=== PATIENT | female | born 1945 | race Hispanic/Latino ===

== ENCOUNTER 2020-01-15 07:54 | Day surgery (SDC) | payer OTHER ==
--- NOTE | 2020-01-11 15:23 | RAD REPORT ---
EXAM DESCRIPTION: Tamiko Ojeda (2 Views)01/11/2020 3:05 pm CLINICAL HISTORY: Abdominal pain/preop for gallbladder surgery COMPARISON: 2013 FINDINGS: The lungs appear clear of acute infiltrate. The heart is normal size IMPRESSION: No acute abnormalities displayed
[2020-01-11 15:31] LABS: Absolute Lymphocytes (CBC) 2.8 K/uL (0.7-4.9); Basophils % 0.6 % (0-1.3); Hematocrit 41.2 % (36.0-45.0); Lymphocytes % 33.9 % (15.3-44.8); MPV 10.1 fL (7.6-11.3); RBC Red Blood Cell Count 4.55 M/uL (3.86-4.86)
[2020-01-11 15:49] LABS: ALT/SGPT 33 U/L (12-78); AST/SGOT 26 U/L (15-37); Albumin 3.9 g/dL (3.4-5.0); Alkaline Phosphatase 69 U/L (45-117); Amylase 58 U/L (25-115); BUN Blood Urea Nitrogen 18 mg/dL (7-18); Bicarbonate 27 mmol/L (21-32); Bilirubin Direct < 0.1 mg/dL (0-0.2); Bilirubin Total 0.3 mg/dL (0.2-1.0); Glucose Level 146 mg/dL (74-106); Lipase 234 U/L (73-393); Potassium 4.4 mmol/L (3.5-5.1); Protein, Total 7.5 g/dL (6.4-8.2); Sodium Level 140 mmol/L (136-145)
[2020-01-15] MEDS ORDERED: NA CHLORIDE 0.9% 1,000 ML ONE (08:47)
--- OUTSIDE RECORDS SUMMARY | 2020-01-15 08:58 | XMS REPORT | Clinical Summary ---
:1945 Author Organization [facility] Address [address] [place] [address] Care Team Providers Name Role Phone Angelica Green MD Primary Care Provider Allergies No Known Active Allergies Medications Medication Sig Dispensed Refills Start Date End Date Status pantoprazole Take 40 mg by 0 Act jovani (PROTONIX) 40 MG mouth daily. EC tablet lisinopril Take 10 mg by 0 Activ e (PRINIVIL,ZESTRIL) mouth daily. 10 MG tablet Hold dos clopidogrel Take 75 mg by 0 Acti ve (PLAVIX) 75 mg mouth daily. tablet citalopram Take 20 mg by 0 Activ e (CeleXA) 20 MG mouth daily. tablet aspirin (ECOTRIN) Take 81 mg by 0 Active 81 MG enteric mouth daily. coated tablet metoprolol Take 50 mg by 0 Activ e tartrate mouth 2 (two) (LOPRESSOR) 50 MG times a day. tablet glyburide-metformi Take 2 tablets 0 Active n (GLUCOVANCE) by mouth 2 (two) 5-500 mg per times a day. tablet solifenacin Take 5 mg by 0 Activ e (VESICARE) 10 MG mouth daily. tablet calcium Take 1 tablet by 0 Act jovani citrate-vitamin D3 mouth daily. (CITRACAL+D) 315-200 mg-unit per tablet simvastatin Take 40 mg by 0 Acti ve (ZOCOR) 20 MG mouth every tablet morning. exenatide Inject under the 0 Act jovani microspheres 2 mg skin. suspension,extende d rel recon NON FORMULARY EYE VITAMIN 0 Acti ve cycloSPORINE Administer 1 0 Acti ve (RESTASIS) 0.05 % drop to both ophthalmic eyes 2 (two) emulsion times a day. TURMERIC (CURCUMIN 0 A ctive MISC) EXENATIDE Bydureon 0 Active MICROSPHERES (BYDUREON SUBQ) Jardiance 25 mg 0 10/12/2019 Act jovani tablet gabapentin Take 300 mg by 5 06/24/2015 Dis continued (NEURONTIN) 300 MG mouth 3 (three) 0 capsule times a day. glyburide-metformi Take 1 tablet(s) 0 12/05 Discontinued n (GLUCOVANCE) twice a day by 0 5-500 mg per oral route. tablet Active Problems Problem Noted Date Pre-op evaluation 12/26/2019 SOB (shortness of breath) 12/26/2019 Pure hypercholesterolemia 12/26/2019 Essential hypertension 12/26/2019 Spinal stenosis of lumbar region 10/04/2015 Encounters Date Type Specialty Care Team Description 01/02/2020 Travel 12/26/2019 Office Visit Cardiology Cedric Farfan MD Pre-op e valuation (Primary Dx); SOB (shortness of breath); Pure hyperchole sterolemia; Essential hyper tension 12/26/2019 Travel 12/22/2019 Travel 12/22/2019 Telephone Cardiology Juvenal Paul MA Cardiac [facility] nce after 01/14/2019 Surgical History Surgery Date Site/Laterality Comments OTHER SURGICAL HISTORY Neck Fuss ion HYSTERECTOMY KNEE SURGERY left ESOPHAGEAL DILATION NECK SURGERY fusion IA 10/04/2015 Spine Lumbar/N/A Procedure: DECO MPRESSION, LAMINEC/FACETECT/FORAMIN,LUMBA L 4-L5 ; Surgeon: Shelton Herr MD; Loc ation: [facility] OPC 19 OR; Serv ice: Orthopedics SPINE SURGERY Cervical Fusion Medical History Medical History Date Comments Hypertension Hyperlipidemia Diabetes mellitus (HCC) GERD (gastroesophageal reflux disease) TIA (transient ischemic attack) Angina pectoris (HCC) Claustrophobia Does not exercise Arthritis lower back CAD (coronary artery disease) At risk for difficult intubation Seconda ry to history of neck fusion Family History Medical History Relation Name Comments Diabetes Mother Heart disease Mother Stroke Mother Relation Name Status Comments Father Mother Social History Tobacco Use Types Packs/Day Years Used Date Former Smoker Cigarettes 0.5 Comments: Quit 1995 Alcohol Use Drinks/Week oz/Week Comments No Sex Assigned at Date Recorded Not on file COVID-19 Exposure Response Date Recorded In the last month, have you been in contact with No / Unsure 01/02/2020 7:34 AM CDT someone who was confirmed or suspected to have Coronavirus / COVID-19? Last Filed Vital Signs Vital Sign Reading Time Taken Comments Blood Pressure 147/65 12/26/2019 11:13 AM CDT Pulse 55 12/26/2019 11:13 AM CDT Temperature - - Respiratory Rate - - Oxygen Saturation - - Inhaled Oxygen Concentration - - Weight 62.1 kg (137 lb) 12/26/2019 11:13 AM CDT Height 162.6 cm (5' 4") 12/26/2019 11:13 AM CDT Body Mass Index 23.52 12/26/2019 11:13 AM CDT Plan of Treatment Health Maintenance Due Date Last Done Comments DIABETIC RETINAL EYE EXAM 1945 DIABETIC FOOT EXAM 10/16/1953 URINE MICROALBUMIN 10/16/1953 COLONOSCOPY SCREENING 10/16/1993 SHINGLES VACCINES (#1) 10/16/1993 65+ PNEUMOCOCCAL VACCINE (1 of 1 - PPSV23) 10/16/2008 INFLUENZA VACCINE 11/04/2019 Procedures Procedure Name Priority Date/Time Associated Comments Diagnosis NM MYOCARDIAL Routine 01/03/2020 4:19 PM Pre-op evalu ation Results for this PERFUSION REST CDT SOB (shortness of procedur e are in STRESS 1 DAY breath) the results section. CV STRESS TEST Routine 01/02/2020 9:48 AM Pre-op evalu ation Results for this CDT SOB (shortness of procedure are in breath) the results section. ECG 12-LEAD Routine 12/25/2019 11:21 PM Pre-op evaluation Res ults for this CDT procedure are i n the results section. after 01/14/2019 Results Nm myocardial perfusion (01/03/2020 4:19 PM CDT) Specimen Narrative Performed At [facility] Nuclear Cardi ology and Cardiac CT [address] [place] [address] Myocardial Pe rfusion Imaging Report Stress ECG tracings are availab le in MUSE, EPIC and CV Web All ECG interpretations a re included in this report Pat.Name: ADELA CHIN Pat.ID: [id number] .Date: 01/02/2020 Refer.MD: CEDRIC FARFAN MD Exam Time: 8:40:00 AM Study Type:Myocardial Perfusion Imaging Height: 64in Weight: 137lb BSA: 1.67 m2 Ag e: 1945,74Y Sex: FEMALE Nuclear Tech:Mariaelena Powell Nuclear Event ID:[id number] Order ID: [id number] Reason for Study:Pre-op clearance, Short ness of breath Procedures: Single Day Rest / Stress Race: Clinical Symptoms:Regadenoson 0.4 mg adm inistered intravenously over 10 seconds SUMMARY: BASELINE ECG Normal Sinus Rhythm, Nons pecific ST abnormality STRESS TEST RESULTS Maximal Predicted HR 144 beats/minute 85% Maximal Predicted HR 122 beats/minute Stress Test Duration 1 minutes 00 seco nds Resting Heart Rate 64 beats/minute Max imal Heart Rate 96 beats/minute Resting Blood Pressure 110/70 mmHg Max imal Blood Pressure 132/80 mmHg % Maximal Heart Rate Achieved 67% Symptoms During Test Flushing, Dyspnea , Dizziness Reason for Stopping Test As per regade noson protocol Maximal ST-segment shift None Stress-Induced Arrhythmias None Ischemic electrocardiographic changes (S T-segment depression) did not occur at peak regadenoson stress. STRESS TEST INTERPRETATION Normal anders l regadenoson stress test. SCINTIGRAPHIC RESULTS Perfusion Defect Size (% LV) 0 % Total 0 % Ischemia 0 % Scar Left Ventricular Perfusion Results There is normal tracer distribution duri ng stress and rest. Gated SPECT Results The post-stress left ventricular ejectio n fraction is 63 % with normal regional wall motion and left ventricula r thickening. Left ventricular end-diastolic volume is 51 m l; end-systolic volume is 19 ml. The left ventricle is of normal size at stress and at rest. The right ventricle is of normal size with n ormal wall motion. Conclusion Normal regadenoson Tc-99m sestamibi myoc ardial perfusion study. The left ventricular ejection fraction is no rmal. Comments Patients with a normal stress myocardial perfusion study have a low (< 1%) annual risk of cardiac or nonf atal myocardial infarction. Study Quality/Artifacts The study quality is good. Comparison to Previous Study The previous study dated 08/16/2015 was a lso normal, with a left ventricular ejection fraction of 73%. FINDINGS: Signed 01/03/2020 06:18 PM Boni Blackmon MD Procedure Note Interface, Radiology Results In - 2019 6:24 PM CDT Nuclear Cardiology and Cardiac CT [address] [facility] [address] [place] [address] Myocardial Perfusion I maging Report Stress ECG tracings are available in [employer], [employer] and [employer] All ECG interpretations are in cluded in this report Pat.Name: ADELA CHIN Pat.I D: [id number] St.Date: 01/02/2020 Refer .MD: CEDRIC FARFAN MD Exam Time: 8:40:00 AM Study Type:Myocardial Perfusion Imaging Height: 64in Weigh t: 137lb BSA: 1.67 m2 Age: 7 1945,74Y Sex: FEMALE Nucle cesar Tech:Mariaelena Powell Nuclear Event ID:[id number] Order ID: [id number] Reason for Study:Pre-op clearance, Short ness of breath Procedures: Single Day Rest / Stress Race: Clinical Symptoms:Regadenoson 0.4 mg adm inistered intravenously over 10 seconds SUMMARY: BASELINE ECG Normal Sinus Rhythm, Nonsp ecific ST abnormality STRESS TEST RESULTS Maximal Predicted HR 144 beats/minute 8 5% Maximal Predicted HR 122 beats/minute Stress Test Duration 1 minutes 00 secon ds Resting Heart Rate 64 beats/minute Maxi mal Heart Rate 96 beats/minute Resting Blood Pressure 110/70 mmHg Maxi mal Blood Pressure 132/80 mmHg % Maximal Heart Rate Achieved 67% Symptoms During Test Flushing, Dyspnea, Dizziness Reason for Stopping Test As per regaden oson protocol Maximal ST-segment shift None Stress-Induced Arrhythmias None Ischemic electrocardiographic changes (S T-segment depression) did not occur at peak regadenoson stress. STRESS TEST INTERPRETATION Normal anders l regadenoson stress test. SCINTIGRAPHIC RESULTS Perfusion Defect Size (% LV) 0 % Total 0 % Ischemia 0 % Scar Left Ventricular Perfusion Results There is normal tracer distribution duri ng stress and rest. Gated SPECT Results The post-stress left ventricular ejectio n fraction is 63 % with normal regional wall motion and left ventricula r thickening. Left ventricular end-diastolic volume is 51 m l; end-systolic volume is 19 ml. The left ventricle is of normal size at stress and at rest. The right ventricle is of normal size with n ormal wall motion. Conclusion Normal regadenoson Tc-99m sestamibi myoc ardial perfusion study. The left ventricular ejection fraction is no rmal. Comments Patients with a normal stress myocardial perfusion study have a low (< 1%) annual risk of cardiac or nonf atal myocardial infarction. Study Quality/Artifacts The study quality is good. Comparison to Previous Study The previous study dated 08/16/2015 was a lso normal, with a left ventricular ejection fraction of 73%. FINDINGS: Signed 01/03/2020 06:18 PM Boni Blackmon MD Performing Organization Address City/State/ZIP Code Phon e Number [facility] [id number] [place] [address] Cv stress test (01/02/2020 9:48 AM CDT) Resting HR 62 [facility] Resting BP 110&70 [facility] Peak MET Achieved 1.0 [facility] Protocol Name Arnoldo [facility] MUSE Time in Exercise 00:01:00 [facility]USE Phase Max Systolic BP 136 [facility] Max Diastolic BP 84 [facility] Max Heart Rate 96 [facility] Max Predicted Heart 144 [facility] Rate Target HR Formula (220 - Age)*85% H MUSE Test Indication H MUSE Arrhy During Ex [facility] ECG Interp Before EX [facility] ECG Interp During Ex [facility] Ex Summary Comment [facility] MUSE Chest Pain Statement none [facility] MUSE Overall HR Response H MUSE to Exercise Overall BP Response H MUSE To Exercise Reason for As per [facility] MUSE Termination protocol Stress Test Waveform interpreted in [facility] MUSE Impression report associated with image study. No interpretation is provided as part of this Stress ECG report.--Electronically Signed By Neymar HORTON, Boni Marie ([id number]), assistant production editor Ruth Kenyon ([id number]) on 01/10/2020 3:15:07 PM Specimen Narrative Performed At This result has an attachment that is no t available. Performing Organization Address City/[facility] Phon e Number H MUSE [address] [place] [address] ECG 12 lead (12/25/2019 11:21 PM CDT) Pathologist Sig nature Ventricular rate 56 [facility] Atrial rate 56 [facility] IA interval 176 H MUSE QRSD interval 84 [facility] QT interval 448 [facility] QTC interval 432 [facility] P axis 1 58 [facility] QRS axis 1 62 [facility] T wave axis 64 [facility] EKG impression Sinus [facility] MUSE bradycardia-Electronica lly Signed By Santy Valdez MD ([id number]) on 12/27/2019 2:09:05 PM Specimen Narrative Performed At This result has an attachment that is no t available. Performing Organization Address [facility] Phon e Number H MUSE [address] [place] [address] after 01/14/2019 Insurance Payer Benefit Plan / Subscriber ID Effective Dates Phone Addre ss Type Group MEDICARE MEDICARE PART A [id number] 2008-Present [facility] [place] Medicare AND B FOR LIFE [id number] 2015-Present [facility] SUPPLEMENT Advance Directives For more information, please contact: [phone] Type Date Recorded Patient Laboratory Chemical Assistant Explanati on Advance Directives, Living Will and Medical Power of Software Sales Manager
--- OUTSIDE RECORDS SUMMARY | 2020-01-15 08:59 | XMS REPORT | Continuity of Care Document ---
:1945 Author Organization [facility] t Address Critical access hospital [address] [place] [address] Care Team Providers Name Role Phone Peter HORTON Primary Care Physician NAHEED Attending Clinician Unavailable Beverly SANCHEZ Attending Clinician Unavailable Payers Payer Name Policy Type Policy Effective Date Expiration Date Sour ce Number MEDICAREMEDICARE PART [id number] 2008 Ken[place] Rivera AND 00:00:00 [facility] PqtaxcziDS330/04/2008[place] FOR [id number] 2015 [place] LIFE MCR 00:00:00 [facility] [id number]/ 04/2015-PresentMilitar y Problems Condition Condition Condition Status Onset Resolution Last Treating Co mments Source Name Details Category Date Date Treatment Clinician Date Pre-op Pre-op Disease Active [facility] evaluation evaluation 12-25 Me thodi 00:00: st 00 SOB SOB Disease Active [facility] (shortness (shortness 12-25 Me [facility] of breath) of breath) 00:00: st 00 Pure Pure Disease Active [facility] hyperchole hyperchole - Me thodi sterolemia sterolemia 00:00: st 00 Essential Essential Disease Active Jonathan ston hypertensi hypertensi - Me thodi on on 00:00: st 00 Spinal Spinal Disease Active [facility] stenosis stenosis 7-01 Method i of lumbar of lumbar 00:00: st region region 00 Allergies, Adverse Reactions, Alerts This patient has no known allergies or adverse reactions. Family History Family Member Diagnosis Comments Start Date Stop Date Source Natural mother Diabetes [facility] [facility] Natural mother Heart disease [facility] [facility] Natural mother Stroke [facility] thodist Social History Social Habit Start Date Stop Date Quantity Comments Source History of tobacco Cigarette Smoker [facility] use [facility] Sex Assigned At [facility] Exposure to Not sure [facility] SARS-CoV-2 (event) Method ist Cigarettes smoked 2015-11-21 2015-11-21 [facility] current (pack per 00:00:00 00:00:[address] ) - Reported Alcohol intake 2015-11-21 2015-11-21 Current [facility] 00:00:00 00:00:00 non-drinker of Orthodox alcohol (finding) Tobacco Comment 2015-10-03 2015-10-03 Quit 1995 [facility] 00:00:00 00:00:00 [facility] Smoking Status Start Date Stop Date Source Former smoker 2015-11-21 00:00:00 2015-11-21 00:00:00 [place] [facility] Medications Ordered Filled Start Stop Current Ordering Indication Dosage Frequency Signature Comments Components Source Medication Medication Date Date Medication? Clinician (SIG) Name Name glyburide-m 2020-0 2020- No Take 1 Jonathan ston etformin 12-25 tablet(s) Metho di (GLUCOVANCE 11:18: 00:[address] ) 5-500 mg 28 :00 day by per tablet oral route. pantoprazol 2020-0 Yes 40mg QD Take 40 mg [place] e 12-25 by mouth Methodi (PROTONIX) 11:17: daily. st 40 MG EC 45 tablet lisinopril 2020-0 Yes 10mg QD Take 10 mg [place] (PRINIVIL,Z 12-25 by mouth Meth donte ESTRIL) 10 11:17: daily. st MG tablet 45 Hold dos clopidogrel 2020-0 Yes 75mg QD Take 75 mg [place] (PLAVIX) 75 12-25 by mouth Meth donte mg tablet 11:17: daily. st 45 citalopram 2020-0 Yes 20mg QD Take 20 mg [place] (CeleXA) 20 12-25 by mouth Meth donte MG tablet 11:17: daily. st 45 aspirin 2020-0 Yes 81mg QD Take 81 mg [place] (ECOTRIN) 12-25 by mouth Method i 81 MG 11:17: daily. st enteric 45 coated tablet metoprolol 2020-0 Yes 50mg Q.5D Take 50 mg [place] tartrate 12-25 by mouth 2 Metho di (LOPRESSOR) 11:17: (two) st 50 MG 45 times a tablet day. glyburide-m 2020-0 Yes 2{tbl} Q.5D Take 2 [place] etformin 12-25 tablets by Metho di (GLUCOVANCE 11:17: mouth 2 st ) 5-500 mg 45 (two) per tablet times a day. solifenacin 2020-0 Yes 5mg QD Take 5 mg [place] (VESICARE) 12-25 by mouth Metho di 10 MG 11:17: daily. st tablet 45 calcium 2020-0 Yes 1{tbl} QD Take 1 [place] citrate-vit 12-25 tablet by Met hodi jeter D3 11:17: mouth st (CITRACAL+D 45 daily. ) 315-200 mg-unit per tablet simvastatin 2019-0 Yes 40mg QD Take 40 mg [place] (ZOCOR) 20 12-25 by mouth Metho di MG tablet 11:17: every st 45 morning. NON 2020-0 Yes EYE [place] FORMULARY 12-25 VITAMIN Methodi 11:17: st 45 cycloSPORIN 2019-0 Yes 1[drp] Q.5D Administer [place] E 12-25 1 drop to Methodi (RESTASIS) 11:17: both eyes st 0.05 % 45 2 (two) ophthalmic times a emulsion day. EXENATIDE 2019-0 Yes Bydureon [place] MICROSPHERE 12-25 Methodi S (BYDUREON 11:17: st SUBQ) 45 Jardiance 2019-0 Yes [place] 25 mg 10-11 Methodi tablet 00:00: st 00 exenatide Yes Inject Gare[place] n microsphere -18 under the Met hodi s 2 mg 12:39: skin. st suspension, 14 extended rel recon TURMERIC 2015- Yes Naeem (CURCUMIN 8-18 Methodi MISC) 12:39: st 14 gabapentin 2015-0 2020- No 300mg [id number] Take 300 [place] (NEURONTIN) 06-23 [id number] mg by Methodi 300 MG 00:00: 00:[address] capsule 00 :00 (three) times a day. Vital Signs Vital Name Observation Time Observation Value Comments Source Systolic blood 2019-12-26 11:13:00 147 mm[Hg] Garett delgado [facility] pressure Diastolic blood 2019-12-26 11:13:00 65 mm[Hg] [place] [facility] pressure Heart rate 2019-12-26 11:13:00 55 /min [place] Body height 2019-12-26 11:13:00 162.6 cm [place] Body weight 2019-12-26 11:13:00 62.143 kg [place] BMI 2019-12-26 11:13:00 23.52 kg/m2 [facility] [place] Procedures Procedure Date / Time Performed Performing Clinician Sourc e NM MYOCARDIAL PERFUSION 2020-01-03 16:19:38 Cedric Farfan Orthodox REST STRESS 1 DAY CV STRESS TEST 2020-01-02 09:48:02 Cedric Farfan Meth odist ECG 12-LEAD 2019-12-25 23:21:40 Cedric Farfan Meth odist Plan of Care Planned Activity Planned Date Details Comments Source Future Scheduled 2019-11-04 INFLUENZA VACCINE [place] [facility] Test 00:00:00 [code = INFLUENZA VACCINE] Future Scheduled 2008-10-16 65+ PNEUMOCOCCAL [facility] Test 00:00:00 VACCINE (1 of 1 - PPSV23) [code = 65+ PNEUMOCOCCAL VACCINE (1 of 1 - PPSV23)] Future Scheduled 1993-10-16 COLONOSCOPY SCREENING [place] [facility] Test 00:00:00 [code = COLONOSCOPY SCREENING] Future Scheduled 1993-10-16 SHINGLES VACCINES (#1) [place] [facility] Test 00:00:00 [code = SHINGLES VACCINES (#1)] Future Scheduled 1953-10-16 DIABETIC FOOT EXAM [place] [facility] Test 00:00:00 [code = DIABETIC FOOT EXAM] Future Scheduled 1953-10-16 URINE MICROALBUMIN [place] [facility] Test 00:00:00 [code = URINE MICROALBUMIN] Future Scheduled 1945 DIABETIC RETINAL EYE Jonathan ston [facility] Test 00:00:00 EXAM [code = DIABETIC RETINAL EYE EXAM] Encounters Start End Encounter Admission Attending Care Care Encounter Source Date/Time Date/Time Type Type Clinicians Facility Department ID 2020-01-02 2020-01-02 [id number] [place] 00:00:00 00:00:00 CEDRIC [address] 2019-12-26 2019-12-26 Outpatient [facility] [id number] [place] 00:00:00 00:00:00 CEDRIC [address] Results Test Description Test Time Test Comments Results Result Comments Source ECG 12 lead 2019-12-27 14:09:09 Test Item Value Reference Range Interpretation Comme nts Ventricular rate (test code = 253) 56 Atrial rate (test code = 255) 56 AL interval (test code = 266) 176 QRSD interval (test code = 260) 84 QT interval (test code = 264) 448 QTC interval (test code = 265) 432 P axis 1 (test code = 267) 58 QRS axis 1 (test code = 268) 62 T wave axis (test code = 270) 64 EKG impression (test code = 273) Sinus bradycardia-Electronically S igned By Santy Valdez MD ([id number]) on 12/27/2019 2:09:05 PM [place] [place]
[2020-01-15] MEDS ORDERED: CEFOXITIN/SWI 1gm 1 GM/10 ML SYR ONE (09:03)
[2020-01-15] MEDS ORDERED: FENTANYL CITR 100 MCG/2 ML ONE (09:24)
[2020-01-15] MEDS ORDERED: ROCURONIUM 50 MG/5 ML VIAL IV ONE (09:24)
[2020-01-15] MEDS ORDERED: MIDAZOLAM HCL 2 MG/2 ML INJ ONE (09:24)
[2020-01-15] MEDS ORDERED: propofoL 200 MG/20 ML VIAL IV ONE (09:24)
[2020-01-15] MEDS ORDERED: LIDOCAINE 2% MPF 5 ML VIAL ONE (09:24)
[2020-01-15] MEDS ORDERED: dexAMETHasone 4 MG/ML VIAL ONE (09:25)
[2020-01-15] MEDS ORDERED: ONDANSETRON 4 MG/2 ML VIAL ONE (09:25)
[2020-01-15] MEDS ORDERED: GLYCOPYRROLATE 0.2 MG/ML SYR ONE ×2 (10:23→10:46)
[2020-01-15] MEDS ORDERED: EPHEDRINE SULF 50 MG/ML VIAL ONE (10:29)
--- NOTE | 2020-01-15 10:39 | P.BOP ---
Preoperative diagnosis: acute cholecystitis, symptomatic cholelithiasis Postoperative diagnosis: same Primary procedure: Laparoscopic cholecystectomy Estimated blood loss: <10cc Specimen: gb Findings: as above Anesthesia: General Complications: None Transferred to: Recovery Room Condition: Good
[2020-01-15] MEDS ORDERED: KETOROLAC 30 MG/ML INJ ONE (10:41)
[2020-01-15] MEDS ORDERED: NEOSTIGMINE 1 MG/ML -5 ML ONE (10:48)
--- NOTE | 2020-01-15 11:09 | OP ---
Date of Procedure: 01/15/2020 Surgeon: Kamran Fuentes MD Preoperative Diagnoses: Acute cholecystitis, symptomatic cholelithiasis. Postoperative Diagnoses: Acute cholecystitis, symptomatic cholelithiasis. Procedure Performed: Laparoscopic cholecystectomy. Anesthesia: General plus local. Specimen: Gallbladder. Finding: Acute cholecystitis and symptomatic cholelithiasis. Indications: This is the case of a 74-year-old patient, comes to us with above diagnosis. Fully exp lained the benefits, alternatives, and risks of laparoscopic possible open cholecystectomy, which inc lude, but not limited to infection, bleeding, damage to adjacent structures, anesthesia complication, choledocholithiasis, bile leak, pancreatitis, [place], and even . She also understands this may not relieve any symptoms. She might need more than one surgical intervention. She understood and andrew d the consent. Procedure In Detail: The patient was brought to the operating room and placed in supine position. A nesthesia was done without complication. Abdominal area was prepped and draped in sterile fashion. Marcaine 0.5% was injected for local anesthetic followed by sharp incision of the skin in the infraum bilical region. Incision was carried down to fascia, which was opened under direct vision. Peritone um was encountered, opened under direct vision. Vicryl #1 placed inside the fascia. Makenna trocar w as carefully introduced. Pneumoperitoneum was obtained. I placed 3 more trocars, 5 mm each one of t hem in the right upper quadrant under direct visualization. I put a grasper in the fundus of the gal lbladder. After obtaining pneumoperitoneum, another grasper in the infundibulum retracting the gallb ladder in the inferolateral fashion exposing the triangle of Calot obtaining critical view. The cyst ic duct and cystic artery were clearly isolated, freed circumferentially and a connection between tho se and the gallbladder were clearly identified. I proceeded to ligate those by using at least 3 clip s proximal, 1 clip distal, ligation in middle. Same was done with the cystic artery. No bile leak. No bleeding. The gallbladder was removed from liver using Bovie cauterizer and removed from abdomin al cavity using EndoCatch through the umbilical incision. The area was inspected once again. No víctor e leak. No bleeding. At that moment, I proceeded to remove the trocars under direct vision, deflate d pneumoperitoneum, closed the fascia with #1 Vicryl, irrigated subcutaneous tissue and closed with 3 -0 chromic and skin in a subcuticular fashion with 3-0 chromic, and Steri-Strips on top. Sponge coun t and instrument counts correct. The patient tolerated the procedure well. The patient was sent to Recovery in stable condition. ESDRAS/SOLOMON Voice ID: [id number] Report ID: [id number]
--- NOTE | 2020-01-15 11:15 | DS ---
Diagnosis: Acute cholecystitis, symptomatic cholelithiasis. Procedure: Laparoscopic cholecystectomy. Disposition: Home. Activity: As tolerated. No heavy lifting. Plan: Follow up in my office in 1 week. Call for appointment [phone]. Keep area dry for 48 hours, then may shower. Keep Steri-Strips intact. Medications: Bactrim DS p.o. b.i.d. and Tylenol No. 3 q.4 hours p.r.n. pain. ADAMA Voice ID: [id number] Report ID: [id number]
[2020-01-15] MEDS ORDERED: CODEINE 30MG/APAP 300MG TAB ONE (13:03)
[2020-01-15 13:42] VITALS: BP 136/77; TEMP 97.5; O2SAT 99
== END 2020-01-15 13:25 | disposition home or self-care (01) ==
LOC: OR 07:54 → DS 13:25
PROVIDERS: ATTEND Surgery
PROC: 0FT44ZZ Resection of Gallbladder, Percutaneous Endoscopic Approach (ICD-10-PCS; principal; 2020-01-15 09:45)
DX: K80.12 Calculus of gallbladder with acute and chronic cholecystitis without obstruction (principal); E11.9 Type 2 diabetes mellitus without complications; I10 Essential (primary) hypertension; I25.10 Atherosclerotic heart disease of native coronary artery without angina pectoris; I34.1 Nonrheumatic mitral (valve) prolapse; K21.9 Gastro-esophageal reflux disease without esophagitis; F41.9 Anxiety disorder, unspecified; F32.9 Major depressive disorder, single episode, unspecified; Z20.828 Contact with and (suspected) exposure to other viral communicable diseases; Z79.02 Long term (current) use of antithrombotics/antiplatelets; Z79.84 Long term (current) use of oral hypoglycemic drugs; Z86.73 Personal history of transient ischemic attack (TIA), and cerebral infarction without residual deficits; Z80.0 Family history of malignant neoplasm of digestive organs; Z83.3 Family history of diabetes mellitus; Z82.49 Family history of ischemic heart disease and other diseases of the circulatory system
CPT/HCPCS: 85025; 80048; 36415; 82150; 82947 ×2; 80076; 88304; 83690; 71046; 47562; U0002; J2704; J1100; J2250; J3010; J2710; J7030; J2405

== ENCOUNTER → 2023-07-05 | Day surgery (SDC) | payer OTHER ==
--- NOTE | 2023-07-05 10:42 | RAD REPORT ---
EXAM DESCRIPTION: US - Guided FNA Non Breast - 07/05/2023 10:12 am CLINICAL HISTORY: D44.0 COMPARISON: No comparisons FINDINGS: Preoperative diagnosis: Right thyroid nodule. Post operative diagnosis: Same. Conscious Sedation: None Fluoroscopy time: None Contrast used: None Estimated blood loss: Minimal Specimens:4 fine-needle aspirates were obtained using a 25 gauge needle. Imaging: Ultrasound IMPRESSION: Technically successful ultrasound-guided fine-needle aspiration of a solid right thyroid nodule.
== END ==
LOC: FNA 09:28
PROVIDERS: ATTEND Otolaryngology
PROC: 0GBH3ZX Excision of Right Thyroid Gland Lobe, Percutaneous Approach, Diagnostic (ICD-10-PCS; principal; 2023-07-05)
DX: D44.0 Neoplasm of uncertain behavior of thyroid gland (principal)
CPT/HCPCS: 88162; 88305

== ENCOUNTER 2024-05-02 18:56 | Emergency (ER) | payer OTHER ==
--- NOTE | 2024-05-02 19:10 | ER ---
Nurse's Notes [facility] Name: Adela Chin Age: 78 yrs Sex: Female : 1945 Arrival Date: 05/02/2024 Time: 18:56 Bed 13 Private MD: Diagnosis: Bitten by cat;Local infection of the skin and subcutaneous tissue, unspecified Presentation: 05/02 19:05 Chief complaint: Patient states: she was bit by a cat on her left thumb yesterday. ap3 patient currently rates her pain as a 7/10 on the pain scale. Coronavirus screen: At this time, the client does not indicate any symptoms associated with coronavirus-19. Ebola Screen: No symptoms or risks identified at this time. Initial Sepsis Screen: Does the patient meet any 2 criteria? No. Patient's initial sepsis screen is negative. Does the patient have a suspected source of infection? No. Patient's initial sepsis screen is negative. Risk Assessment: Do you want to hurt yourself or someone else? Patient reports no desire to harm self or others. Onset of symptoms was May 01, 2024. 19:05 Method Of Arrival: Ambulatory ap3 19:05 Acuity: ISAAK 3 ap3 Triage Assessment: 19:07 Bite description: bite sustained to palmar aspect of proximal phalanx of left thumb by ap3 a cat. General: Appears in no apparent distress. distressed, comfortable, Behavior is calm, cooperative, appropriate for age. Pain: Complains of pain in left thumb. Neuro: Level of Consciousness is awake, alert, obeys commands, Oriented to person, place, time, situation, Appropriate for age. Cardiovascular: Patient's skin is warm and dry. Respiratory: Airway is patent Respiratory effort is even, unlabored, Respiratory pattern is regular, symmetrical. 19:30 Bite description: animal information: vaccination(s) is current. aa10 Historical: - Allergies: 19:06 No Known Allergies; ap3 - PMHx: 19:06 Diabetes - NIDDM; Hyperlipidemia; Hypertension; ap3 - Immunization history:: Client reports receiving the 2nd dose of the Covid vaccine, Last tetanus immunization: unknown, Flu vaccine is up to date. - Infectious Disease History:: Denies. - Social history:: Smoking status: Patient denies any tobacco usage or history of. Screenin:08 [facility] ED Fall Risk Assessment (Adult) History of falling in the last 3 months, ap3 including since admission No falls in past 3 months (0 pts) Confusion or Disorientation No (0 pts) Intoxicated or Sedated No (0 pts) Impaired Gait No (0 pts) Mobility Assist Device Used No (0 pt) Altered Elimination No (0 pt) Score/Fall Risk Level 0 - 2 = Low Risk Oriented to surroundings, Maintained a safe environment, Educated pt \T\ family on fall prevention, incl call for assistance when getting out of bed, Assessed \T\ reinforced patient's understanding of fall precautions, Hourly rounding (assess needs \T\ fall precautionary measures) done, Used ambulatory aids as needed (educated on \T\ assisted with), Used gait belt as appropriate. Abuse screen: Denies threats or abuse. Nutritional screening: No deficits noted. Tuberculosis screening: No symptoms or risk factors identified. Assessment: 19:08 Derm: Skin bite el on left thumb Skin is pink, warm \T\ dry. ap3 Vital Signs: 19:05 BP 178 / 61; Pulse 72; Resp 17; Temp 98.1; Pulse Ox 100% ; Weight 59.42 kg; Height 5 ap3 ft. 4 in. ; Pain 7/10; 19:29 BP 159 / 81; Pulse 81; Resp 20 S; Temp 99; Pulse Ox 99% on R/A; aa10 19:05 Body Mass Index 22.49 (59.42 kg, 162.56 cm) ap3 19:05 Pain Scale: Adult ap3 ED Course: 19:00 Patient arrived in ED. im 19:00 Georgia Mireles FNP-C is [facility]. kb 19:00 Singh Mtz MD is Attending Physician. kb 19:06 Triage completed. ap3 19:08 Arm band placed on right wrist. ap3 19:08 No provider procedures requiring assistance completed. ap3 19:30 Patient has correct armband on for positive identification. Allergy band placed. Fall aa10 risk band placed. Placed in gown. Bed in low position. Call light in reach. Side rails up X2. Provided Education on: ABOUT PLAN OF CARE. 05/03 01:58 Patient did not have IV access during this emergency room visit. aa10 Administered Medications: 05/02 19:29 Drug: Amoxicillin-Clavulanate PO 875 mg PO once Route: PO; aa10 19:40 Follow up: Response: No adverse reaction; Marked relief of symptoms aa10 19:29 Drug: Boostrix Tdap IM 0.5 ml IM once; as a single dose Route: IM; Site: left deltoid; aa10 19:40 Follow up: Response: No adverse reaction; Marked relief of symptoms aa10 20:19 Drug: Acetaminophen-Codeine PO (300 mg-30 mg) 1 tablet PO once; RASS on ADMIN: Combtv4, aa10 Very Agttd3, Agttd2, Rstlss1, AlertClm0, Drwsy-1, Lt Sdtn-2, Mod Sdtn-3, Dp Sdtn-4, UnArsble-5 Route: PO; 20:20 Follow up: Response: No adverse reaction; Marked relief of symptoms; Medication aa10 administered at discharge. Medication: 19:31 Vaccine Information Statement (VIS) provided today. Questions and/or concerns aa10 addressed. VIS edition date: May 02, 2024. Outcome: 19:10 Discharge ordered by MD. mak 20:21 Patient left the ED. aa10 05/03 01:58 Discharged to home ambulatory, aa10 Condition: good Discharge instructions given to patient, Instructed on discharge instructions, Signatures: Georgia Mireles, PEYTON LONGO-Sonya Steiner, RN RN ap3 Pema Sarmiento Ayoku RN RN aa10
--- NOTE | 2024-05-02 19:10 | EDPHYS ---
Physician Documentation [facility] Name: Adela Chin Age: 78 yrs Sex: Female : 1945 Arrival Date: 05/02/2024 Time: 18:56 Bed 13 Private MD: ED Physician Singh Mtz HPI: 05/02 19:05 This 78 yrs old Female presents to ER via Unassigned with complaints of Cat kb Bite. 19:05 Pt is an 78 year old female who presents for cat bite that occurred yesterday. States kb it is more swollen and red today than it was yesterday. Denies fever. . Historical: - Allergies: 19:06 No Known Allergies; ap3 - PMHx: 19:06 Diabetes - NIDDM; Hyperlipidemia; Hypertension; ap3 - Immunization history:: Client reports receiving the 2nd dose of the Covid vaccine, Last tetanus immunization: unknown, Flu vaccine is up to date. - Infectious Disease History:: Denies. - Social history:: Smoking status: Patient denies any tobacco usage or history of. ROS: 19:05 Constitutional: As per HPI kb Exam: 19:05 Constitutional: This is a well developed, well nourished patient who is awake, alert, kb and in no acute distress. Head/Face: Normocephalic, atraumatic. ENT: Moist Mucous membranes Cardiovascular: Regular rate Respiratory: Respirations even and unlabored. No increased work of breathing. Talking in full sentences MS/ Extremity: Pulses equal, no cyanosis. Neurovascular intact. Full, normal range of motion. Neuro: Awake and alert, GCS 15, oriented to person, place, time, and situation. 19:05 Skin: Appearance: normal except for affected area, Color: erythematous, mild erythema to proximal left thumb, Temperature: normal temperature, warm, swelling, noted on the lateral aspect of left hand, that are mild, Vital Signs: 19:05 BP 178 / 61; Pulse 72; Resp 17; Temp 98.1; Pulse Ox 100% ; Weight 59.42 kg; Height 5 ap3 ft. 4 in. ; Pain 7/10; 19:29 BP 159 / 81; Pulse 81; Resp 20 S; Temp 99; Pulse Ox 99% on R/A; aa10 19:05 Body Mass Index 22.49 (59.42 kg, 162.56 cm) ap3 19:05 Pain Scale: Adult ap3 MDM: 19:00 Medical Screening Exam initiated kb 19:08 Differential diagnosis: cellulitis, abscess. Data reviewed: vital signs, nurses notes. kb Counseling: I had a detailed discussion with the patient and/or guardian regarding the historical points, exam findings, and any diagnostic results supporting the discharge/admit diagnosis, the need for outpatient follow up, a family practitioner, to return to the emergency department if symptoms worsen or persist or if there are any questions or concerns that arise at home. Administered Medications: 19:29 Drug: Amoxicillin-Clavulanate PO 875 mg PO once Route: PO; aa10 19:40 Follow up: Response: No adverse reaction; Marked relief of symptoms aa10 19:29 Drug: Boostrix Tdap IM 0.5 ml IM once; as a single dose Route: IM; Site: left deltoid; aa10 19:40 Follow up: Response: No adverse reaction; Marked relief of symptoms aa10 20:19 Drug: Acetaminophen-Codeine PO (300 mg-30 mg) 1 tablet PO once; RASS on ADMIN: Combtv4, aa10 Very Agttd3, Agttd2, Rstlss1, AlertClm0, Drwsy-1, Lt Sdtn-2, Mod Sdtn-3, Dp Sdtn-4, UnArsble-5 Route: PO; 20:20 Follow up: Response: No adverse reaction; Marked relief of symptoms; Medication aa10 administered at discharge. Disposition: 20:35 Co-signature as Attending Physician, Singh Mtz MD I reviewed the patient's care rt provided by the Advanced Practice Provider and agree with the diagnosis and treatment plan. Disposition Summary: 05/02/24 19:10 Discharge Ordered Notes: Location: Home kb Condition: Stable kb Diagnosis - Bitten by cat kb - Local infection of the skin and subcutaneous tissue, unspecified kb Followup: kb - With: Emergency Department - When: As needed - Reason: Worsening of condition Followup: kb - With: Private Physician - When: 2 - 3 days - Reason: Recheck today's complaints, Continuance of care, Re-evaluation by your physician Discharge Instructions: - Discharge Summary Sheet kb - Animal Bite, Adult, [id number] kb - Wound Infection, [id number] kb Forms: - Medication Reconciliation Form kb - Antibiotic Education kb - Prescription Opioid Use kb - Patient Portal Instructions kb - Leadership Thank You Letter kb Prescriptions: - Augmentin 875-125 mg Oral Tablet - take 1 tablet ORAL route every 12 hours for 10 days; 20 tablet; Refills: 0, kb Product Selection Permitted Signatures: Georgia Mireles FNP-C FNP-Ckb Prokisch, Amanda, RN RN ap3 Singh Mtz MD MD rt Janett Kyle RN RN aa10
[2024-05-02] MEDS ORDERED: AMOX/K CLAV 875 MG TAB ONE (19:22)
[2024-05-02] MEDS ORDERED: TDAP (DIPHTH,PERTUSS(ACELL),TET VAC) 0.5 ML VIAL IMVAC ONE (19:23)
[2024-05-02] MEDS ORDERED: CODEINE 30MG/APAP 300MG TAB ONE (20:18)
[2024-05-03 06:29] VITALS: BP 159/81; TEMP 99; O2SAT 99
== END 2024-05-02 20:21 | disposition home or self-care (01) ==
LOC: ER 18:56
DX: S60.372A Other superficial bite of left thumb, initial encounter (principal); L08.9 Local infection of the skin and subcutaneous tissue, unspecified; W55.01XA Bitten by cat, initial encounter
CPT/HCPCS: 96372; 99284